=== PATIENT | female | born 1945 | race Caucasian/White ===

== ENCOUNTER 2017-01-24 06:44 | Day surgery (SDC) | payer MEDICARE, OTHER ==
--- NOTE | ~2017-01-24 | EGD ---
EGD REPORT [facility] [address] [address] NAME: SUSSY FELIX : [birth year] STATUS : REG [facility]#: [id number] AGE: 71 ADM/REG DATE : 01/24/17 MR#: [id number] REPORT SERV DATE: 01/24/17 DICTATED BY: TRES CORTES DATE: 01/24/17 REPORT STATUS : Draft TRANSCRIBED BY: [facility] DATE: 01/24/17 Endoscopy Center Patient Name: Sussy Feilx Date of : 1945 Attending MD: TRES CORTES, Procedure Date No Time: 01/24/2017 Procedure: Colonoscopy Indications: High risk colon cancer surveillance: Personal history of colonic polyps Referring MD: KISHORE TONEY Medicines: Monitored Anesthesia Care Complications: No immediate complications. Estimated blood loss: None. Procedure: Pre-Anesthesia Assessment: - ASA Grade Assessment: II - A patient with mild systemic disease. After I obtained informed consent, the scope was passed under direct vision. Throughout the procedure, the patient's blood pressure, pulse, and oxygen saturations were monitored continuously. The CF [id number] was introduced through the anus and advanced to the cecum, identified by appendiceal orifice and ileocecal valve. The colonoscopy was performed with moderate difficulty due to significant looping. The patient tolerated the procedure well. The quality of the bowel preparation was adequate. The ileocecal valve, appendiceal orifice and rectum were photographed. Findings: The perianal and digital rectal examinations were normal. Three sessile polyps were found in the transverse colon. The polyps were 9 to 12 mm in size. These polyps were removed with a hot snare. Resection and retrieval were complete. Verification of patient identification for the specimen was done. Estimated blood loss was minimal. Two sessile polyps were found in the transverse colon. The polyps were 4 to 5 mm in size. These polyps were removed with a cold snare. Resection and retrieval were complete. Verification of patient identification for the specimen was done. Estimated blood loss was minimal. A sessile polyp was found in the cecum. The polyp was 10 mm in size. The polyp was removed with a hot snare. Resection and retrieval were complete. Verification of patient identification for the specimen was done. Estimated blood loss was minimal. A sessile polyp was found in the ascending colon. The polyp was 10 mm in size. The polyp was removed with a hot snare. Resection and retrieval were complete. Verification of patient identification for the specimen EGD REPORT [address] [address] NAME: SUSSY FELIX : [birth year] STATUS : REG [facility] PAT#: [id number] AGE: 71 ADM/REG DATE : 01/24/17 MR#: [id number] REPORT SERV DATE: 01/24/17 DICTATED BY: TRES CORTES DATE: 01/24/17 REPORT STATUS : Draft TRANSCRIBED BY: [employer] DATE: 01/24/17 was done. Estimated blood loss was minimal. Internal hemorrhoids were found during retroflexion and were Grade I (internal hemorrhoids that do not prolapse). The exam was otherwise without abnormality on direct and retroflexion views. Impression: - Three 9 to 12 mm polyps in the transverse colon. Resected and retrieved. - Two 4 to 5 mm polyps in the transverse colon. Resected and retrieved. - One 10 mm polyp in the cecum. Resected and retrieved. - One 10 mm polyp in the ascending colon. Resected and retrieved. - Internal hemorrhoids. - The examination was otherwise normal on direct and retroflexion views. Recommendation: - Patient has a contact number available for emergencies. The signs and symptoms of potential delayed complications were discussed with the patient. Return to normal activities tomorrow. Written discharge instructions were provided to the patient. - Return to previous diet. - Continue present medications. - Repeat colonoscopy in 3 years for surveillance. Procedure Code(s): --- Professional --- 77471, Colonoscopy, flexible, proximal to splenic flexure; with removal of tumor(s), polyp(s), or other lesion(s) by snare technique Diagnosis Code(s): --- Professional --- D12.2, Benign neoplasm of ascending colon D12.0, Benign neoplasm of cecum D12.3, Benign neoplasm of transverse colon K64.0, First degree hemorrhoids Z86.010, Personal history of colonic polyps CPT copyright 2013 [employer]. All rights reserved. The codes documented in this report are preliminary and upon remote medical coder review may be revised to meet current compliance requirements. TRES CORTES, 01/24/2017 8:47 AM EGD REPORT [facility] [address] [place]. [address] NAME: SUSSY FELIX : [birth year] STATUS : REG [facility] PAT#: [id number] AGE: 71 ADM/REG DATE : 01/24/17 MR#: [id number] REPORT SERV DATE: 01/24/17 DICTATED BY: TRES CORTES DATE: 01/24/17 REPORT STATUS : Draft TRANSCRIBED BY: [employer] DATE: 01/24/17 Number of Addenda: 0 Note Initiated On: 01/24/2017 7:44 AM Scope Withdrawal Time 0 hours 15 minutes 46 seconds [address] [place] [address]
--- NOTE | ~2017-01-24 | EGD ---
EGD REPORT [facility] [address] [address] NAME: SUSSY FELIX : [birth year] STATUS : REG [facility]#: [id number] AGE: 71 ADM/REG DATE : 01/24/17 MR#: [id number] REPORT SERV DATE: 01/24/17 DICTATED BY: TRES CORTES DATE: 01/24/17 REPORT STATUS : Draft [facility]: [facility] DATE: 01/24/17 Endoscopy Center Patient Name: Sussy Felix Date of : 1945 Attending MD: TRES CORTES, Procedure Date No Time: 01/24/2017 Procedure: Upper GI endoscopy Indications: Heartburn Referring MD: KISHORE TONEY Medicines: Monitored Anesthesia Care Complications: No immediate complications. Estimated blood loss: None. Procedure: Pre-Anesthesia Assessment: - ASA Grade Assessment: II - A patient with mild systemic disease. After obtaining informed consent, the endoscope was passed under direct vision. Throughout the procedure, the patient's blood pressure, pulse, and oxygen saturations were monitored continuously. The GIF [id number] was introduced through the mouth, and advanced to the second part of duodenum. The upper GI endoscopy was accomplished without difficulty. The patient tolerated the procedure well. Findings: The esophagus was normal. A 3 cm hiatus hernia was present. Normal mucosa was found in the entire examined stomach. Biopsies were taken with a cold forceps for histology. Verification of patient identification for the specimen was done. Estimated blood loss was minimal. The cardia and gastric fundus were normal on retroflexion. The examined duodenum was normal. Impression: - Normal esophagus. - Hiatus hernia. - Normal mucosa was found in the entire stomach. Biopsied. - Normal examined duodenum. Recommendation: - Patient has a contact number available for emergencies. The signs and symptoms of potential delayed complications were discussed with the patient. Return to normal activities tomorrow. Written discharge instructions were provided to the patient. - Return to previous diet. EGD REPORT [facility] [address] [place] [address]. [address] NAME: SUSSY FELIX : [birth year] STATUS : REG [facility]#: [id number] AGE: 71 ADM/REG DATE : 01/24/17 MR#: [id number] REPORT SERV DATE: 01/24/17 DICTATED BY: TRES CORTES DATE: 01/24/17 REPORT STATUS : Draft TRANSCRIBED BY: [employer] DATE: 01/24/17 - Return to previous diet. - Await pathology results. Procedure Code(s): --- Professional --- 46436, Esophagogastroduodenoscopy, flexible, transoral; with biopsy, single or multiple Diagnosis Code(s): --- Professional --- K44.9, Diaphragmatic hernia without obstruction or gangrene R12, Heartburn CPT copyright 2013 [employer]. All rights reserved. The codes documented in this report are preliminary and upon motor bus driver review may be revised to meet current compliance requirements. TRES CORTES, 01/24/2017 8:48 AM Number of Addenda: 0 Note Initiated On: 01/24/2017 7:50 AM Scope Withdrawal Time 0 hours 0 minutes 0 seconds [address] [place] [address]
[~2017-01-24 06:44] MED LIST: AMB10 PO; ELIQUIS 5 MG TAB5 MG PO; METHOC500B PO; NEUR300 PO; NORCO1 TA2 PO; SYN125 PO; V5 PO; ZANTAC150 MG PO
== END 2017-01-24 23:59 | disposition home or self-care (01) ==
LOC: DMU 06:44
PROVIDERS: Internal Medicine Gastroenterology
PROC: 0DBL8ZX Excision of Transverse Colon, Via Natural or Artificial Opening Endoscopic, Diagnostic (ICD-10-PCS; 2017-01-24)
PROC: 0DB68ZX Excision of Stomach, Via Natural or Artificial Opening Endoscopic, Diagnostic (ICD-10-PCS; 2017-01-24)
PROC: 0DBK8ZX Excision of Ascending Colon, Via Natural or Artificial Opening Endoscopic, Diagnostic (ICD-10-PCS; principal; 2017-01-24 08:00)
PROC: 0DBH8ZX Excision of Cecum, Via Natural or Artificial Opening Endoscopic, Diagnostic (ICD-10-PCS; 2017-01-24 08:00)
DX: D12.0 Benign neoplasm of cecum (principal); K64.0 First degree hemorrhoids; D12.2 Benign neoplasm of ascending colon; D12.3 Benign neoplasm of transverse colon; K29.50 Unspecified chronic gastritis without bleeding; K44.9 Diaphragmatic hernia without obstruction or gangrene; Z86.010 Personal history of colon polyps; Z86.718 Personal history of other venous thrombosis and embolism; Z88.0 Allergy status to penicillin; Z88.2 Allergy status to sulfonamides; Z79.891 Long term (current) use of opiate analgesic; Z79.899 Other long term (current) drug therapy; Z98.890 Other specified postprocedural states; Z90.49 Acquired absence of other specified parts of digestive tract; Z90.710 Acquired absence of both cervix and uterus; Z98.41 Cataract extraction status, right eye; Z98.42 Cataract extraction status, left eye
CPT/HCPCS: 88305; 88342